=== PATIENT | female | born 1960 | race Caucasian/White ===

== ENCOUNTER → 2016-10-27 08:38 | Outpatient (CLI) | payer MEDICAID ==
[2016-07-26 12:38] VITALS: BMI 31.4
[~2016-10-27 08:38] MED LIST: AMOXICILLIN500 M1 PO; COUMADIN5 MG PO; CYCLOBENZAPRINE10 MG PO; ELIQUIS2.5 MG PO; HYDROCODON-ACE1 EAC7 PO; HYDROCODON-ACE1 EAC9 PO; HYDROCODONE-APA1 TAB PO; MS CONTIN15 MG PO; MS CONTIN30 MG PO; ONDANSETRON4 MG/2 M3 PO; OXYCONTIN10 MG PO; PERCOCET 10/3251 TA1 PO; PRILOSEC20 MG PO; ROBAXIN-750750 MG PO; ULTRAM50 MG PO; VALIUM5 MG PO; ZOFRAN8 MG PO; ZOLOFT50 MG PO
== END | disposition home or self-care (01) ==
LOC: D.RAD 08:30
DX: M43.22 Fusion of spine, cervical region (principal)

== ENCOUNTER 2016-11-27 18:12 | Emergency (ER) | payer MEDICAID ==
[2016-07-26 12:38] VITALS: BMI 31.4
== END 2016-11-27 20:53 | disposition home or self-care (01) ==
LOC: D.ER 18:12
DX: M19.031 Primary osteoarthritis, right wrist (principal)

== ENCOUNTER 2016-12-23 13:08 | Emergency (ER) | payer MEDICAID ==
[2016-07-26 12:38] VITALS: BMI 31.4
== END 2016-12-23 18:38 | disposition left against medical advice (07) ==
LOC: D.ER 13:08
DX: M54.5 Low back pain (principal)

== ENCOUNTER 2017-04-28 22:26 | Emergency (ER) | payer MEDICAID ==
[2016-07-26 12:38] VITALS: BMI 31.4
== END 2017-04-28 23:52 | disposition home or self-care (01) ==
LOC: D.ER 22:26
DX: M54.30 Sciatica, unspecified side (principal); M54.5 Low back pain; F17.200 Nicotine dependence, unspecified, uncomplicated

== ENCOUNTER 2017-09-29 20:45 | Emergency (ER) | payer MEDICAID ==
[2016-07-26 12:38] VITALS: BMI 31.4
== END 2017-09-29 22:27 | disposition home or self-care (01) ==
LOC: D.ER 20:45
DX: S40.012A Contusion of left shoulder, initial encounter (principal); S70.02XA Contusion of left hip, initial encounter; W01.0XXA Fall on same level from slipping, tripping and stumbling without subsequent striking against object, initial encounter; Y93.89 Activity, other specified; Y92.410 Unspecified street and highway as the place of occurrence of the external cause; S16.1XXA Strain of muscle, fascia and tendon at neck level, initial encounter

== ENCOUNTER 2018-06-22 05:11 | Emergency (ER) | payer MEDICAID ==
[~2018-06-22] VITALS: Ht 170.2 cm; Wt 86.4 kg
[2018-06-22 05:20] VITALS: Ht 170.2 cm; Wt 86.4 kg
[2018-06-22] MEDS ORDERED: NORCO 5/325 TAB1 TAB PO (05:52)
[2018-06-22] MEDS ORDERED: ROBAXIN500 MG PO (05:52)
[2018-06-22] MEDS ORDERED: KENALOG 0.1 % 115 GM TOPICAL (06:36)
[2018-06-22 06:45] VITALS: BP 154/73
== END 2018-06-22 06:46 | disposition home or self-care (01) ==
LOC: D.ER 05:11
DX: S39.012A Strain of muscle, fascia and tendon of lower back, initial encounter (principal); Y04.2XXA Assault by strike against or bumped into by another person, initial encounter; Y93.89 Activity, other specified; Y92.019 Unspecified place in single-family (private) house as the place of occurrence of the external cause; S16.1XXA Strain of muscle, fascia and tendon at neck level, initial encounter; Z87.820 Personal history of traumatic brain injury; I10 Essential (primary) hypertension

== ENCOUNTER 2018-07-26 10:05 | Emergency (ER) | payer MEDICAID ==
[~2018-07-26] VITALS: Ht 170.2 cm; Wt 86.4 kg
[~2018-07-26 10:05] MED LIST changes: +KENALOG 0.1 % 115 GM TOPICAL; +NORCO 5/325 TAB1 TAB PO; +ROBAXIN500 MG PO
[2018-07-26 10:11] VITALS: BP 125/77; Ht 170.2 cm; Wt 86.4 kg
== END 2018-07-26 14:20 | disposition home or self-care (01) ==
LOC: D.ER 10:05
DX: M25.511 Pain in right shoulder (principal); M79.601 Pain in right arm; M25.551 Pain in right hip; Z87.820 Personal history of traumatic brain injury; I10 Essential (primary) hypertension

== ENCOUNTER 2019-04-17 08:32 | Emergency (ER) | payer MEDICAID ==
[~2019-04-17] VITALS: Ht 170.2 cm; Wt 84.7 kg
[2019-04-17 08:39] VITALS: Ht 170.2 cm; Wt 84.7 kg
[2019-04-17] MEDS ORDERED: EYE DROPS (08:42)
[2019-04-17 09:14] LABS: APPEARANCE CLEAR (CLEAR); BILIRUBIN NEGATIVE (NEGATIVE); COLOR YELLOW (YELLOW); GLUCOSE NEGATIVE (NEGATIVE); KETONE NEGATIVE (NEGATIVE); NITRITE NEGATIVE (NEGATIVE); PROTEIN NEGATIVE (NEGATIVE); SPECIFIC GRAVITY 1.015 (1.005-1.020); UROBILINOGEN NORMAL (NORMAL)
[2019-04-17 09:15] LABS: BACTERIA MODERATE /hpf (NONE SEEN); EPITHELIAL CELLS 0-5 /hpf (0-5); MUCUS <1+ /lpf (NONE SEEN); RED CELLS - URINE OCC /hpf (0-5); WHITE CELLS - URINE OCC /hpf (0-5)
[2019-04-17] MEDS ORDERED: FLAGYL500 MG PO (10:21)
[2019-04-17] MEDS ORDERED: ULTRAM50 MG PO (10:21)
[2019-04-17] MEDS ORDERED: NAPROSYN500 MG PO (10:21)
[2019-04-17 10:40] VITALS: BP 134/82
== END 2019-04-17 10:40 | disposition home or self-care (01) ==
LOC: D.ER 08:32
PROVIDERS: Family Medicine
DX: M54.5 Low back pain (principal); N76.0 Acute vaginitis; B96.89 Other specified bacterial agents as the cause of diseases classified elsewhere

== ENCOUNTER 2019-09-07 01:00 | Emergency (ER) | payer MEDICAID ==
[~2019-09-07] VITALS: Ht 170.2 cm; Wt 90.7 kg
[~2019-09-07 01:00] MED LIST changes: +EYE DROPS; +FLAGYL500 MG PO; +NAPROSYN500 MG PO
[2019-09-07 01:09] VITALS: Ht 170.2 cm; Wt 90.7 kg
[2019-09-07 01:34] LABS: APPEARANCE CLEAR (CLEAR); BILIRUBIN NEGATIVE (NEGATIVE); COLOR YELLOW (YELLOW); GLUCOSE NEGATIVE (NEGATIVE); KETONE NEGATIVE (NEGATIVE); NITRITE NEGATIVE (NEGATIVE); PROTEIN NEGATIVE (NEGATIVE); SPECIFIC GRAVITY 1.015 (1.005-1.020); UROBILINOGEN NORMAL (NORMAL)
[2019-09-07] MEDS ORDERED: ZPAK PO (02:00)
[2019-09-07] MEDS ORDERED: HYDROCODON-ACE1 EAC7 PO (02:01)
[2019-09-07] MEDS ORDERED: ALBUTEROL SULF8.5 GM INH (02:02)
[2019-09-07 02:50] VITALS: BP 138/92
== END 2019-09-07 02:50 | disposition home or self-care (01) ==
LOC: D.ER 01:00
PROVIDERS: Emergency Medicine
DX: J32.9 Chronic sinusitis, unspecified (principal); J45.909 Unspecified asthma, uncomplicated; H40.9 Unspecified glaucoma

== ENCOUNTER 2019-10-12 17:59 | Emergency (ER) | payer MEDICAID ==
[~2019-10-12 17:59] MED LIST changes: +ALBUTEROL SULF8.5 GM INH; +ZPAK PO
[2019-10-12 18:33] VITALS: Ht 170.2 cm
[2019-10-12 20:48] VITALS: BP 105/56
[2019-10-12] MEDS ORDERED: VOLTAREN75 MG PO (20:49)
[2019-10-12] MEDS ORDERED: BACLOFEN20 M1 PO (20:49)
== END 2019-10-12 20:48 | disposition home or self-care (01) ==
LOC: D.ER 17:59
DX: S39.012A Strain of muscle, fascia and tendon of lower back, initial encounter (principal); X50.0XXA Overexertion from strenuous movement or load, initial encounter; Y93.9 Activity, unspecified; Y92.9 Unspecified place or not applicable; M62.838 Other muscle spasm; J45.909 Unspecified asthma, uncomplicated

== ENCOUNTER 2020-02-17 05:21 | Emergency (ER) | payer MEDICAID ==
[~2020-02-17] VITALS: Ht 170.2 cm; Wt 84.5 kg
[~2020-02-17 05:21] MED LIST changes: +BACLOFEN20 M1 PO; +STERAPRED DS 1010 MG PO; +VOLTAREN75 MG PO
[2020-02-17 05:26] VITALS: Ht 170.2 cm; Wt 84.5 kg
[2020-02-17 08:00] VITALS: BP 159/72
== END 2020-02-17 08:00 | disposition home or self-care (01) ==
LOC: D.ER 05:21
DX: I80.01 Phlebitis and thrombophlebitis of superficial vessels of right lower extremity (principal); J45.909 Unspecified asthma, uncomplicated

== ENCOUNTER 2020-07-11 16:09 | Emergency (ER) | payer MEDICAID ==
[2020-02-17 05:26] VITALS: BMI 29.2
== END 2020-07-11 16:25 | disposition left against medical advice (07) ==
LOC: D.ER 16:09
DX: R05 Cough (principal); Z53.21 Procedure and treatment not carried out due to patient leaving prior to being seen by health care provider